=== PATIENT | female | born 1975 | race Caucasian/White ===

== ENCOUNTER 2020-04-30 06:34 | Outpatient (CLI) | payer OTHER, SELFPAY ==
--- NOTE | 2020-05-02 10:05 | WPDNEUROLOGY ---
Neurology EEG Report General Information Date of Study: 04/30/20 TEST eeg DIAGNOSIS Memory loss CONDITION OF RECORDING awake drowsy and sleep EEG NUMBER [id number] CLINICAL HISTORY patient reported she has been falling a lot and sometime has trouble thinking of what she wants to say EEG DESCRIPTION basic resting occipital frequency consists of large amount of well-organized low to medium voltage 8 to 10 hertz per 2nd alpha admixed with low-voltage 15 to 18 hertz per 2nd beta. Low-voltage beta activity seen diffusely during drowsiness. Bilateral symmetrical sleep spindles are seen during sleep. Hyperventilation not done photic stimulation produced normal drive intermittent EKG artifacts are noted throughout the tracing non paroxysmal nonfocal nonlateralizing IMPRESSION normal record
== END 2020-04-30 06:35 | disposition home or self-care (01) ==
PROVIDERS: PCP Family Medicine; Visit Provider Psychiatry & Neurology Neurology
DX: R41.3 Other amnesia (principal)
CPT/HCPCS: 95816